=== PATIENT | male | born 2000 | race Caucasian/White ===

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

== ENCOUNTER → 2022-08-03 15:03 | Outpatient (BNVA) | payer SELFPAY | PROVIDERS: Visit Provider Internal Medicine | DX: Z02.79 Encounter for issue of other medical certificate (principal) ==

== ENCOUNTER → 2022-10-06 10:18 | Outpatient (BNVA) | payer OTHER, SELFPAY | PROVIDERS: Visit Provider Physician Assistant | DX: S67.21XA Crushing injury of right hand, initial encounter (principal); W23.0XXA Caught, crushed, jammed, or pinched between moving objects, initial encounter | CPT/HCPCS: 29130; 73130; 99204 ==

== ENCOUNTER → 2022-10-11 09:34 | Outpatient (BNVA) | payer OTHER, SELFPAY | PROVIDERS: Visit Provider Physician Assistant Medical | DX: S67.21XA Crushing injury of right hand, initial encounter (principal); W23.0XXA Caught, crushed, jammed, or pinched between moving objects, initial encounter | CPT/HCPCS: 99213 ==

== ENCOUNTER → 2022-10-20 10:16 | Outpatient (BNVA) | payer OTHER, SELFPAY | PROVIDERS: PCP Pediatrics; Visit Provider Physician Assistant Medical | DX: S67.21XA Crushing injury of right hand, initial encounter (principal); W23.0XXA Caught, crushed, jammed, or pinched between moving objects, initial encounter | CPT/HCPCS: 99213 ==

== ENCOUNTER 2022-10-25 09:30 | Outpatient (RCR) | payer OTHER, BC, SELFPAY ==
--- NOTE | 2022-10-29 11:10 | MHC.OT.DC ---
[address] [phone] F: [phone] Occupational Therapy Discharge Note Patient Name: Florian Almendarez Provider: Sadaf Ramey Diagnosis: Right hand crush injury Date of Surgery: Date of Evaluation: 10/12/22 Date of Discharge: 10/29/22 Treatments to Date: 5 Cancellations to Date: No Shows to Date: 2 Discharge Status: Improved Function Independent with HEP Visit Non-compliance Discharge Summary: Pt reports occasional low pain ring finger. No difficulty with resistance ex and activity with lifting and wt bearing on right hand WFL Pt waiting for Ortho consult to RTW Electronically Signed By: Marisel Anderson OT CHT clt Reviewed/agree with student documentation: Therapist: Please Sign and return to therapist, thank you for your referral.
== END 2022-10-29 11:10 | disposition home or self-care (01) ==
LOC: HO.OT 09:30
PROVIDERS: PCP Pediatrics; Visit Provider Physician Assistant Medical
DX: S67.21XD Crushing injury of right hand, subsequent encounter (principal)
CPT/HCPCS: 97110; 97165